=== PATIENT | female | born 2000 | race Caucasian/White ===

== ENCOUNTER 2021-01-27 09:03 | Outpatient (RCR) | payer OTHER, SELFPAY ==
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
[2021-01-27 10:00] VITALS: BP 131/89; PULSE 69
--- NOTE | 2021-01-27 10:15 | BH.SGPN.GN ---
Behaviors/Verbalizations/Mental Status: []Eye contact is fair to good. Motor activity is appropriate. Appearance is casual. Speech is Appropriate. Mood is anxious and depressed. Affect is congruent. Thoughts are linear and logical. No evidence of psychosis. Client Response/Progress/Benefit: []Pt new to IOP tx, was an active participant in group discussion and activity. Attentive during psychoeducation on factors that build resiliency AEB actively taking notes throughout, remaining mostly passive in participation. Worked with peers to define resilience and shared connecting with concept of resilience as one?s ability to ?bounce back? and continue moving forward when faced with adversity or setbacks. Noted connecting with personal resilience examples provided by fellow participants, nodding throughout discussion. Pt along with peers also identified what could impact personal resilience, which included: environment, learned behaviors and learned coping skills, beliefs, habits, and past experiences. Pt benefited by increasing awareness on the role of resilience in mental health and factors that can help build resiliency. Will continue in IOP to promote mood stability and healthy coping skill application, as well as prevent decompensation. Narrative Note: []
--- NOTE | 2021-01-27 10:28 | BH.MTP_ITS ---
[facility] Treatment Plan - Patient Information Program Physician:: Dr. Alana Alford Primary Therapist:: BK Flores - Psychiatric Diagnoses Psychiatric Diagnoses:: Major depressive disorder, recurrent, severe without psychosis, Generalized anxiety disorder Diagnosis Code(s):: F 33.2 - Estimated LOS Estimated LOS (in weeks):: 6 Problem/Goal #1 - Problem/Goal #1 Stated Goal:: Client will reduce depressive symptoms, feelings of hopelessness/worthlessness, apathy, and low energy due to Major Depressive Disorder through Intensive Outpatient Program. Description of Barriers: Negative and distorted thoughts, intrusive thoughts, low motivation, limited supports, apathy, and hx of poor tx outcomes could all be barriers to treatment. Functional Impact: Pt is a 20-year-old female with a history of depression and anxiety who was referred to IOP tx by her outpatient psychiatric provider due to worsening symptoms of depression and fleeting suicidal ideation. Per pt report, symptoms have been worsening for the past 2 months and especially became more severe in the past 3 weeks. Reports graduating from college 2 months ago and is struggling with anxiety about finding a job and determining her future career plans. Reports that lack of direction has led to increased depression, specifically hopelessness and worthlessness. Additionally reports that pressure to find a job had increased in the past few weeks as she and her long-term girlfriend have recently decided to move in together and cannot afford to do so until pt finds a more financially stable job in the [facility]. Reports currently living with her parents and sister who are supportive but that her father in not aware of her sexuality which is at times a stressor. At time of admission, pt endorses: low energy, increased fatigue and sleep, decreased motivation and concentration, hopelessness, worthlessness, isolation, and fleeting passive suicidal ideation. Denies any active suicidal ideation, plan, or intent at this time. Indicates some increased anxiety symptoms including racing thoughts, ruminating thoughts causing increased worry, and panic attacks occurring approximately once a week. Reports current symptoms have resulted in pt calling off at her current job, feeling disconnected from others, not completing daily self-care or responsibilities, limited finances, and lack of engagement in activities she used to enjoy. Given impact on social, occupational, and financial functioning pt is to begin IOP tx. Goal Relevant Strengths/Supports: intelligent, familiar with mental health tx environment, willing to learn and try new treatment skills. - Objectives Objective #1 Stated Objective: Identify at least 2-3 distorted thoughts that reinforce depressive symptoms and replace with rational thought patterns. Interventions: Therapist will help client identify distorted, negative beliefs about self and replace with more realistic, affirmative messages. Discharge Criteria: Client will have achieved this goal when can identify at least 2 distorted thought patterns and effectively replace those thoughts with rational messages. Target Date: 03/10/21 Review Date: 02/24/21 Objective #2 Stated Objective: Pt will decrease depressive symptoms AEB pt?s score on the DSM 5 cross-cutting measure and improve pt?s daily functioning. Interventions: Through groups and individual therapy, pt will be provided with education on healthy coping skills, cognitive distortions, mistaken beliefs, and identifying and combating negative self-talk. Therapist will assist pt with getting back into the activities she once enjoyed as well as increasing healthy coping strategies. Discharge Criteria: Pt will have met this goal when pt?s score on the DSM 5 cross cutting measure for depression has been decreased and per pt?s report daily functioning has improved Target Date: 03/10/21 Review Date: 02/24/21 Problem/Goal #2 - Problem/Goal #2 Stated Goal:: Stabilize anxiety levels and reduce racing thoughts which reinforce anxiety, while increasing ability to function on daily basis. Description of Barriers: Negative and distorted thoughts, intrusive thoughts, low motivation, limited supports, apathy, and hx of poor tx outcomes could all be barriers to treatment. Functional Impact: Pt is a 20-year-old female with a history of depression and anxiety who was referred to [facility] tx by her outpatient psychiatric provider due to worsening symptoms of depression and fleeting suicidal ideation. Per pt report, symptoms have been worsening for the past 2 months and especially became more severe in the past 3 weeks. Reports graduating from college 2 months ago and is struggling with anxiety about finding a job and determining her future career plans. Reports that lack of direction has led to increased depression, specifically hopelessness and worthlessness. Additionally reports that pressure to find a job had increased in the past few weeks as she and her long-term girlfriend have recently decided to move in together and cannot afford to do so until pt finds a more financially stable job in the [facility]. Reports currently living with her parents and sister who are supportive but that her father in not aware of her sexuality which is at times a stressor. At time of admission, pt endorses: low energy, increased fatigue and sleep, decreased motivation and concentration, hopelessness, worthlessness, isolation, and fleeting passive suicidal ideation. Denies any active suicidal ideation, plan, or intent at this time. Indicates some increased anxiety symptoms including racing thoughts, ruminating thoughts causing increased worry, and panic attacks occurring approximately once a week. Reports current symptoms have resulted in pt calling off at her current job, feeling disconnected from others, not completing daily self-care or responsibilities, limited finances, and lack of engagement in activities she used to enjoy. Given impact on social, occupational, and financial functioning pt is to begin IOP tx. Goal Relevant Strengths/Supports: intelligent, familiar with mental health tx environment, willing to learn and try new treatment skills. - Objectives Objective #1 Stated Objective: Client will learn and implement 2-3 calming skills to reduce overall anxiety and manage anxiety symptoms. Interventions: Therapist will teach client calming/relaxation skills and assign client homework which practices relaxation skills daily. Discharge Criteria: Client will have achieved this goal when can verbalize at least 2 calming skills and implement those skills successfully. Target Date: 03/10/21 Review Date: 02/24/21 Objective #2 Stated Objective: Pt will decrease anxious symptoms AEB pt?s score on the DSM 5 cross-cutting measure improve pt?s daily functioning. Interventions: Through groups and individual therapy, pt will be provided education about anxiety?s impact on body and common physiological reaction to anxiety. Therapist will teach pt appropriate breathing techniques and build he althy coping skills to manage daily anxieties. Aid client in identifying and challenging distorted thoughts that cause rumination and increased anxiety. Discharge Criteria: Pt will have met this goal when pt?s score on the DSM 5 cross cutting measure for anxiety has been decreased and per pt?s report daily functioning has improved. Target Date: 03/10/21 Review Date: 02/24/21
--- NOTE | 2021-01-27 11:15 | BH.SGPN.GN ---
Behaviors/Verbalizations/Mental Status: []Client alert and oriented, casual dress, hygiene tended to. Eye contact fair. Motor activity appropriate. Speech within normal limits. Affect constricted, mood anxious. Thoughts linear, logical, no signs of hallucinations or delusions. Client Response/Progress/Benefit: []Client responded well to session AEB contributing to discussion. Client participated in the discussion of how each resiliency component can help increase personal resiliency. Client engaged in activity, working cooperatively with group. Client?s goal to increase resilience is to avoid seeing crises as insurmountable problems. Client reported she will work on this by evaluating each crisis by asking herself will this matter in a year, month, week? Client reported working on this will help her address crisis vs trying to avoid. Pt seemed to benefit from identifying goal to improve her personal resilience. Will continue IOP to improve daily functioning, increase healthy coping and prevent decompensation. Narrative Note: []
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
--- NOTE | 2021-01-27 13:58 | BH.DR.ITP ---
Initial Treatment Plan Patient Information Visit Information: ADMISSION DATE: EXPECTED LOS: 4-6 weeks Problems/Symptoms Problem #1:: Depression Symptom:: Sadness, crying, hopelessness, worthlessness, apathy, hypersomnia, low energy, decreased concentration, passive suicidal ideation history Problem #2:: Anxiety Symptom:: Worry, rumination, panic attacks
--- NOTE | 2021-02-02 09:05 | BH.SGPN.GN ---
Behaviors/Verbalizations/Mental Status: [] Eye contact is good. Motor activity is appropriate. Appearance is casual. Speech is Appropriate. Mood is depressed. Affect is flat. Thoughts are linear and logical. No evidence of psychosis. Reviewed daily check in sheet and no reports of suicidal ideations or intent. Client Response/Progress/Benefit: [] Pt participated when prompted. Attentive. Emotion for today is numb. Unable to identify any mental health wins stating not really. Check-in was short and superficial. Did not identify any stressors or triggers to depressed mood this AM however limited feedback. Limited progress report. Benefited from support and encouragement. Will continue in IOP to maintain safety, stabilize mood, and prevent decompensation. Narrative Note: []
--- NOTE | 2021-02-02 10:10 | BH.SGPN.GN ---
Behaviors/Verbalizations/Mental Status: []Client alert and oriented, disheveled appearance. Eye contact good. Motor activity appropriate. Speech within normal limits. Affect constricted, mood dysthymic. Thoughts linear, logical, no signs of hallucinations or delusions Client Response/Progress/Benefit: []Pt was an attentive participant and provided input during the activity. Attentive during psychoeducation and taking notes. Reflected connecting with topic of personal pitfalls and how they can impede mental health treatment progress. Pt and peers also discussed reasons why overcoming pitfalls is so challenging. During experiential activity pt along with peers identified several pitfalls from the activity that are also associated with mental health which included: lack of awareness, poor communication, wanting to give up, and emotional reactivity. Pt expressed anxiety during the activity, especially when pt gained more responsibility in her role. Pt did well to stay present and keep trying. Benefited from group by increasing awareness of pitfalls which can impact mental health. Pt will continue in IOP tx to prevent decompensation, improve overall functioning, and reduce distorted thought patterns. Narrative Note: []
--- NOTE | 2021-02-02 11:10 | BH.SGPN.GN ---
Behaviors/Verbalizations/Mental Status: []Client alert and oriented, casually dressed and groomed. Eye contact good. Motor activity appropriate. Speech within normal limits. Affect congruent, mood anxious and depressed. Thoughts linear, logical, no signs of hallucinations or delusions. Client Response/Progress/Benefit: []Client receptive of session, engaged throughout AEB client actively participating in challenge activity, as well as listening and contributing to discussion. Attentive throughout processing portions of session and reflected that lack of communication or not knowing how to communicate her needs has served as a barrier in managing her mental health symptoms. Client completed worksheet identifying personal pitfalls impacting mental health progress. Client identified the following pitfalls: negative thoughts, lack of communication, avoidance, and wanting to give up when things get too hard. Group discussed different coping skills to help manage or prevent from falling into pitfalls. Client expressed plans to work on challenging herself to more consistently step back and take small breaks as needed. Appeared to benefit from identifying personal pitfalls and strategies to overcome these pitfalls. Will continue IOP tx to prevent decompensation, improve consistent application of healthy coping skills, and further promote mood stability. Narrative Note: []
--- NOTE | 2021-02-03 09:05 | BH.SGPN.GN ---
Behaviors/Verbalizations/Mental Status: [] Pt eye contact good, casually dressed, motor activity appropriate, speech normal rate and tone, mood anxious, constricted affect, thoughts linear and intact, no evidence of delusions or hallucinations. Reviewed client?s symptom tracker, no signs of suicidal ideation, plan, or intent as of today. Client Response/Progress/Benefit: []Pt responded well to session AEB by listening to others and sharing thoughts and feelings. Pt reported mental health positive as not having any suicidal thoughts yesterday. Pt reported yesterday she noticed herself starting to feel sad so she used opposite action to leave her dark bedroom and go outside for awhile. Pt stated changing her environment definitely helped her mood. Pt stated currently stressed that she needs to find a full-time job so she can move to [place] with her girlfriend. Pt seemed to benefit from reflecting on progress and support from peers. Pt to continue IOP to continue use of healthy coping, challenge negative thoughts and prevent decompensation. Narrative Note: []
--- NOTE | 2021-02-03 10:16 | BH.SGPN.GN ---
Behaviors/Verbalizations/Mental Status: []Client alert and oriented, casually dressed and groomed. Eye contact good. Motor activity appropriate. Speech within normal limits. Affect congruent, mood anxious and depressed. Thoughts linear, logical, no signs of hallucinations or delusions. Client Response/Progress/Benefit: []Pt was an active participant AEB taking notes and listening throughout group discussion, as well as completed anger worksheet. Group worked together to define anger and discussed the ways anger can impact one internally and externally. Pt nodding in connection that anger can lead to damaged relationship with oneself via negative self-talk and guilt if not expressed in healthy ways. Completed the iceberg exercise and identified emotions that tend to ?live under the surface? of pt?s own anger include:, feeling over-stimulated, disappointed, anxious, loneliness, and feeling vulnerable. Pt also gained awareness of their typical responses to anger which included: being rude, smoking more, avoiding and isolating, self-harming, and getting quiet. Benefited from group by increasing understanding of the impact of anger on mental health. Recommended continued tx to continue to improve emotion regulation skills, prevent decompensation, and continue to promote healthy communication with her supports. Narrative Note: []
--- NOTE | 2021-02-03 11:20 | BH.SGPN.GN ---
Behaviors/Verbalizations/Mental Status: []Client alert and oriented, casually dressed and groomed. Eye contact good. Motor activity appropriate. Speech within normal limits. Affect constricted, mood dysthymic and anxious. Thoughts linear, logical, no signs of hallucinations or delusions. Client Response/Progress/Benefit: []Pt was engaged throughout AEB participating in discussion and taking notes. Pt was shaking during the activity, but did well to manage her anxiety in the moment. Contributed as group brainstormed healthy coping skills for better managing anger which included: deep breathing, counting, exercise, taking a walk, and listening to music. Pt also gained awareness of costs of unmanaged anger. Pt appeared to benefit from identifying different techniques to manage anger as well as gaining awareness of the costs of anger. Pt selected deep breathing to better manage anger. Will continue IOP tx to reduce suicidal ideations, improve functioning, and combat cognitive distortions Narrative Note: []
--- NOTE | 2021-02-16 11:22 | BH.MDN ---
Multi-Disciplinary Note - Note 30-min Individual Time Started:: 09:00 Date: 02/02/21 Time Stopped:: :30
== END 2021-02-09 23:59 ==
LOC: BHIOP 09:03
PROVIDERS: PCP Family Medicine; Referring Provider Psychiatry & Neurology Psychiatry; Visit Provider Psychiatry & Neurology Psychiatry
DX: F33.2 Major depressive disorder, recurrent severe without psychotic features (principal); F41.1 Generalized anxiety disorder; R45.851 Suicidal ideations; F12.90 Cannabis use, unspecified, uncomplicated; Z79.899 Other long term (current) drug therapy; Z91.5 Personal history of self-harm
CPT/HCPCS: S9480; 90832; 90853

== ENCOUNTER 2021-02-10 08:31 | Outpatient (RCR) | payer OTHER, SELFPAY ==
[2021-02-10 00:44] VITALS: BP 131/89; PULSE 69
--- NOTE | 2021-02-16 09:10 | BH.SGPN.GN ---
Behaviors/Verbalizations/Mental Status: [] Eye contact is good. Motor activity is appropriate. Appearance is casual. Speech is Appropriate. Mood is anxious. Affect is congruent. Thoughts are linear and logical. No evidence of psychosis. Reviewed daily check in sheet and no reports of suicidal ideations or intent. Client Response/Progress/Benefit: [] Pt participated at times. Attentive. Provided appropriate feedback. Emotion for today is anxious. Mental health wins was increased confidence in mood and stress management which has led to increased work hours. Believes she is managing stress more effectively. Anxious about her parents who were both diagnosed with COVID. She is stepping outside the box and trying to utilize skills such as meditation as she recently downloaded an mariella on her phone for this. Group provided other apps which they have found helpful. Progress noted per pt report. Benefited from group discussion, feedback, and support. Will continue in IOP to maintain safety, increase healthy coping skills, and prevent decompensation. Narrative Note: []
--- NOTE | 2021-02-16 10:06 | BH.SGPN.GN ---
Behaviors/Verbalizations/Mental Status: [] Client alert and oriented, casually dressed and groomed. Eye contact good. Motor activity appropriate. Speech within normal limits. Affect congruent, mood anxious and depressed. Thoughts linear, logical, no signs of hallucinations or delusions. Client Response/Progress/Benefit: [] Pt was well engaged in group AEB taking notes and listening attentively throughout. Attentive during psychoeducation and discussed the importance of goal-setting with the group. Pt indicated ?You need motivation to begin to make progress or opposite action if we don?t have it?. Group identified potential benefits of having goals include: they motivate, increase self-esteem, and are needed to have progress, give a sense of accomplishment, and provide a sense of purpose. Group also worked together to identify barriers to goal-setting which included; negative self-talk, lack of motivation, unrealistic expectations, and procrastination. Pt identified personal barrier as outside distractions and low self-esteem?. Shared that she has struggled to motivate herself to complete goals out of fear of failure in the past. Benefited from increased awareness of benefits and barriers to goal-setting. Pt will continue in IOP to prevent decompensation, reduce depressive sx, and create small goals to improve daily functioning. Narrative Note: []
--- NOTE | 2021-02-17 08:57 | BH.SGPN.GN ---
Behaviors/Verbalizations/Mental Status: []Client alert and oriented, casually dressed and groomed. Eye contact good. Motor activity appropriate. Speech within normal limits, quiet and limited input provided. Affect constricted, mood dysthymic and anxious. Thoughts linear, logical, no signs of hallucinations or delusions. Reviewed client?s symptom tracker, no risk for suicidal ideation, plan, or intent as of 02/17/21 Client Response/Progress/Benefit: []Client receptive of session and attentive throughout. Nodding as fellow participants shared, however declined to process her own progress with the group. Client symptom tracker indicated improvements overall, specifically in areas of depression and anxiety. Appeared to benefit from the shared environment AEB nodding in connection when participants discussed. Client does at times report social anxiety and would benefit from continued treatment to promote increased engagement, internalization of skills, and furth stabilize mental health sx. Narrative Note: []
--- NOTE | 2021-02-17 10:10 | BH.SGPN.GN ---
Behaviors/Verbalizations/Mental Status: [] Eye contact is good. Motor activity is appropriate. Appearance is casual. Speech is Appropriate. Mood is depressed. Affect is flat. Thoughts are linear and logical. No evidence of psychosis. Client Response/Progress/Benefit: [] Pt was an active participant in group discussions. Attentive during psychoeducation. Pt along with peers added their perspective on the definition of stigma as it relates to mental health. Pt participated in interactive group discussion on the topic. Pt along with peer identified how stigma can impact one which included; keeps one more depressed, keeps one from recognizing or addressing mental health, keeps us with showing and being honest about our emotions, keeps one from opportunities, can keep one from social and interacting with friends/family, etc, can impact relationships, and can keep one from seeking help for fear of being labeled.Benefited from increased awareness of mental health stigma and how it could impact patient. Will continue in IOP to maintain safety, prevent decompensation, and to increase healthy coping skills. Narrative Note: []
--- NOTE | 2021-02-17 11:15 | BH.SGPN.GN ---
Behaviors/Verbalizations/Mental Status: []Client alert and oriented, casually dressed, hygiene appeared to be tended to. Eye contact fair. Motor activity appropriate. Speech within normal limits. Affect constricted, mood anxious. Thoughts linear, logical, no signs of hallucinations or delusions. Client Response/Progress/Benefit: []Client engaged participant AEB pt provided some input during small group discussion, taking notes and listening attentively to others. Group brainstormed strategies to combat social and perceived stigma which included: educating others, no longer using negative language about mental illness, being open about mental health, and not reinforcing stigma with behaviors or labels. Client stated she will attempt to decrease mental health stigma by validating own emotions and experiences instead of calling self lazy and minimizing symptoms. Appeared to benefit from increasing awareness of strategies to combat stigma. Will continue IOP tx to continue use of healthy coping, decrease anxiety and prevent decompensation. Narrative Note: []
--- NOTE | 2021-02-19 09:10 | BH.SGPN.GN ---
Behaviors/Verbalizations/Mental Status: [] Eye contact is good. Motor activity is appropriate. Appearance is casual. Speech is Appropriate. Mood is anxious. Affect is congruent. Thoughts are linear and logical. No evidence of psychosis. Reviewed daily check in sheet and no reports of suicidal ideations or intent. Client Response/Progress/Benefit: [] Pt was an active participant in group discussion on empathy vs sympathy. Attentive. Emotion for today is blah. Mental health wins included completing self-care yesterday and she elaborated further on this. She reports that she might gone have to far with her self-care however would not elaborate. She asked the group how we know if self-care becomes excessive. Group provided feedback regarding if self-care is excessive and negatively impacting one's functioning that this could be a warning sign. Group encouraged pt to speak with counselor and support if she did not feel comfortable discussion in group. Progress noted. Benefited from group support, encouragment, and feedback. Will continue in IOP to maintain safety, stabilize mood, and increase healthy coping. Narrative Note: []
--- NOTE | 2021-02-19 10:10 | BH.SGPN.GN ---
Behaviors/Verbalizations/Mental Status: []Client alert and oriented, casually dressed and groomed. Eye contact fair. Motor activity appropriate. Speech within normal limits. Affect constricted, mood anxious. Thoughts linear, logical, no signs of hallucinations or delusions. Client Response/Progress/Benefit: []Client passive participant as shown by active listening and limited contributions. Client listened to the discussion of self-care and the consequences of not practicing self-care. Client helped the group discuss benefits of self-care. Worked with group to identify consequences of poor self-care which included: increased depression, increased anxiety, irritable, and difficulty functioning. Client participated in the discussion on debunking of myths about self-care. Client seemed to connect with group that she will often tell herself she should be doing something different instead of self-care. Client seemed to benefit from increased awareness of the importance of self-care and challenging common myths that prevent practicing self-care. Will continue IOP tx to continue use of healthy coping, challenge negative thoughts and prevent decompensation.
--- NOTE | 2021-02-19 11:18 | BH.SGPN.GN ---
Behaviors/Verbalizations/Mental Status: []Client alert and oriented, casually dressed and groomed. Eye contact good. Motor activity appropriate. Speech within normal limits. Affect constricted, mood depressed and anxious. Thoughts linear, logical, no signs of hallucinations or delusions. Client Response/Progress/Benefit: []Client engaged participant AEB client taking notes and providing some input during discussion, as well a listening attentively to peers. Participated throughout group discussion on the various areas of self-care, benefits, and types of self-care activities for each area. Client completed worksheet which identified current self-care practices and what self-care activities client wants to start using. Client shared doing best in the area of spiritual self-care and would like to continue to improve upon this area as well as begin improving upon emotional self-care as well. Identified plans to work on practicing regular meditation, as well as tracking her own personal accomplishments and areas of progress in order to do begin improving in these areas. Appeared to benefit from completing the self-care evaluation and gaining insights into current self-care practices, as well as identifying areas in which he would like to improve upon. Will continue IOP tx to prevent decompensation, improve coping skill application, and continue to address anxiety sx. Narrative Note: []
--- NOTE | 2021-02-23 09:00 | BH.SGPN.GN ---
Behaviors/Verbalizations/Mental Status: []Client alert and oriented, casually dressed and groomed. Eye contact fair to good. Motor activity appropriate. Speech quiet but within normal limits. Affect congruent, mood anxious, dysthymic. Thoughts linear, logical, no signs of hallucinations or delusions. Reviewed client?s symptom tracker, risk for suicidal ideation reported as a 1/5 which is consistent with baseline, denies plan, or intent as of 02/23/21 Client Response/Progress/Benefit: []Client responded well to session, mostly passive but remained attentive and willing to process with group. Client reports feeling ?slightly anxious and on-edge? today. She identified ongoing difficulties in finding a job in the [employer] to be her primary stress. Shared that this has continued to delay her plans to move and at times feels as though she is ?stuck in a holding pattern?. With support from therapist, client did well to identify that she has made some progress as last week she had not yet completed her resume or begun applying to potential jobs. Noted struggling with patience which has increased distorted thoughts at times. Despite struggling, client identified several skills she has been using to try and focus on self-care and improve ability to maintain patience as she waits to hear back from potential employers. Identified meditation, reading, and reaching out to supports as primary skills used. Appeared to benefit from group support and encouragement, as well as challenging herself to identify small areas of progress despite feeling stagnant. Will continue IOP tx to improve thought challenging, continue to promote behavior activation and small goal setting as she seeks employment, as well as prevent decompensation. Narrative Note: []
--- NOTE | 2021-02-23 10:08 | BH.SGPN.GN ---
Behaviors/Verbalizations/Mental Status: []Client alert and oriented, casually dressed and groomed. Eye contact fair. Motor activity appropriate. Speech within normal limits. Affect constricted, mood anxious and dysthymic. Thoughts linear, logical, no signs of hallucinations or delusions. Client Response/Progress/Benefit: []Pt was an active participant in group discussion AEB taking notes and providing input throughout. Attentive during psychoeducation reviewing internal and external obstacles and provided examples throughout. Participated in the reflection activity in which clients madeline pictures depicting their current and desired reality and shared with the group. Pt described her current reality as ?it feels like I?m in a raft in the middle of the ocean?I just feel stuck.? Pt described her desired reality as ?being moved out, having the job I want, and not feeling as stuck.? Pt reflected on strengths she has that will help pt get to desired reality such as recognizing progress she has made and having more awareness of her feelings. Benefited from group by increasing awareness of current reality and strengths. Will continue IOP tx to improve overall functioning, reduce avoidance, and increase the use of healthy coping skills. Narrative Note: []
--- NOTE | 2021-02-23 11:06 | BH.SGPN.GN ---
Behaviors/Verbalizations/Mental Status: []Client alert and oriented, casually dressed and groomed. Eye contact good. Motor activity appropriate. Speech within normal limits. Affect constricted, mood anxious and dysthymic. Thoughts linear, logical, no signs of hallucinations or delusions. Client Response/Progress/Benefit: []Client engaged during activity and provided ideas on how to cope with internal barriers that keep clients stuck from moving towards goals. Client able to identify barriers to desired reality. Identified barriers to current reality to include: avoidance, lack of motivation, and negative self-talk. Client wants to work on reducing avoidance by practicing opposite action, specially not calling off work when she is anxious. Client plans to tell her goal to her mother to help client be accountable. Benefited from group by identifying obstacles and solutions to desired reality. Client will continue IOP tx to reduce anxiety symptoms, improve overall functioning, and decrease negative thinking. Narrative Note: []
--- NOTE | 2021-02-24 10:15 | BH.MTP_ITS ---
Treatment Plan Review Date of Admission:: 01/27/21 Date of Treatment Plan Review:: 02/24/21 Admitting Diagnoses:: Major depressive disorder, recurrent, severe without psychosis, Generalized anxiety disorder Current Diagnoses:: Major depressive disorder, recurrent, severe without psychosis, Generalized anxiety disorder Patient's Response to Treatment:: Patient's Response to Treatment:: Client has been responding well to treatment and reports seeing overall improvements in her mood and functioning since beginning IOP tx, this is also reflected in overall symptoms reduction as noted in DSM-5 symptom tracker scores. Client initially struggled with consistent attendance and missed several sessions due to illness in the first two weeks of treatment; however, has since been consistent in attendance. When in groups and individual sessions, client remains actively engaged and often provide input to discussion. Client is engaged in individual sessions and self-reports practicing healthy coping skills. Client is medication compliant. Status of Current Problems and Symptoms: Client's problems are ongoing, though she has noted a reduction an anxiety symptoms. Some reduction in depressive sx and reports increased motivation, though continues to struggle with stress of job searching. Client shared she has been struggling with feeling stagnant but is making progress in perspective challenging and small goal completion. Client continues to report a reduction in passive thoughts of suicide and denies any active plan or intent, as well as a 50% reduction in self-harming urges which is progress. Problem #1 Problem Name:: Depression, hopelessness, worthlessness, passive SI Status of Goals:: Objective 1- not complete. Client has made some progress in identifying unhealthy and distorted thoughts which reinforce depression; however, continues to struggle with active and consistent thought challenging. Indicates some improvement in overall ability to challenge negative and distorted thoughts, though struggles when feeling she is not making progress or is not accomplishing goals as quickly as she would like. Objective 2- complete, with additional progress recommended. Client continues to work on identifying and implementing healthy coping skills to reduce depression, improve motivation, and engage in activities she has previously enjoyed. This is seen in client overall 43% reduction of depressive sx as indicated in DSM-5 scores. Team Recommendations:: Continue with goals identified, specific attention to combating negative self-talk and improving self-compassion Problem #2 Problem Name:: Anxiety, rumination, panic Status of Goals:: Objective 1- partially complete. Client reports a slight reduction in anxiety sx per DSM-5 scores reducing by 12.5 %. Client is able to identify several calming skills for managing sx of anxiety. Reports she has been using healthy skills of meditation, reaching out to supports, and positive self- talk. Pt does however continue to report ruminating thoughts and worry but is making progress in these areas as well. Team Recommendations:: Continue treatment plans, work on reducing avoidance behaviors when feeling anxious.
--- NOTE | 2021-02-25 10:10 | BH.SGPN.GN ---
Behaviors/Verbalizations/Mental Status: []Client alert and oriented, casually dressed and groomed. Eye contact good. Motor activity WNL. Speech within normal limits. Affect congruent, mood anxious and dysthymic. Thoughts linear, logical, no signs of hallucinations or delusions. Client Response/Progress/Benefit: []Client responded well to session, attentive and engaged throughout discussion and activity. Agreed with session quote and shared ?if you let fear keep you from things then you will only continue to stay stuck where you are?. The group discussed how mindset, one?s reaction to setbacks, and expectations for success determines progress. Client shared fear of letting self or others down has reinforced her fear of failure in the past and led to client not taking changes or giving up. Client appeared to benefit from gaining awareness of the impact fear of failure can have on one?s mental health and wellbeing, noting connecting with how fear of failure may reinforce depression. Progress noted as client continues gain insight and coping skills which have improved depressive symptoms, however struggles with consistency. Will continue IOP to reduce symptoms, combat distortions reinforcing depression and anxiety, and improve daily functioning. Narrative Note: []
--- NOTE | 2021-02-25 11:12 | BH.SGPN.GN ---
Behaviors/Verbalizations/Mental Status: []Client alert and oriented, casually dressed and groomed. Eye contact good. Motor activity appropriate. Speech within normal limits. Affect congruent, mood dysthymic. Thoughts linear, logical, no signs of hallucinations or delusions. Client Response/Progress/Benefit: []Client responded well to session, engaged in the experiential activity and contributing at times throughout discussion. Client completed the fear of failure worksheet and reported that fear of failure has kept client from ?speaking up in social settings? 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 Client able to identify thoughts and behaviors that reinforce personal fear of failure which included: self-doubt, low self-esteem, being comfortable with remaining stagnant, fear of rejection, and unrealistic expectations of self. Client attentive during discussion of the different strategies to help overcome fear of failure. Identified wanting to work on adjusting her definition or failure to improve her ability to see progress within potential failure settings to overcome fear of failure. Client has made progress with improving use of opposite action and positive self-talk to reduce depression, though continues to struggle in these areas. Client will continue IOP tx to promote mood stability, reduce negative self-talk and unrealistic expectations of self, and improve self-care. Narrative Note: []
--- NOTE | 2021-03-03 09:05 | BH.SGPN.GN ---
Behaviors/Verbalizations/Mental Status: []Client alert and oriented, casually dressed and groomed. Eye contact poor. Motor activity appropriate. Speech within normal limits. Affect flat, mood depressed. Thoughts linear, logical, no signs of hallucinations or delusions. Reviewed client?s symptom tracker, no risk for suicidal ideation, plan, or intent as of 03/03/21 Client Response/Progress/Benefit: []Client was quiet during group session and declined to shared during check-in. Client completed the daily symptom tracker and reported a 3/5 (5 being severe) for depression today. Client also marked 2/5 for irritability and agitation. Because client did not share, therapist was unable to gather client's mental health wins and stressors. Per client's daily symptom tracker, her mood has generally been the same and she reports her functioning has generally been better. Client also self-reports she is taking her medication as prescribed. Appeared to benefit from coming to group today instead of isolating. Client will meet with her IOP therapist later today. Will continue IOP tx to prevent decompensation and challenge cognitive distortions. Narrative Note: []
--- NOTE | 2021-03-03 10:15 | BH.SGPN.GN ---
Behaviors/Verbalizations/Mental Status: [] Eye contact is good. Motor activity is appropriate. Appearance is casual. Speech is Appropriate. Mood is depressed. Affect is flat. Thoughts are linear and logical. No evidence of psychosis. Client Response/Progress/Benefit: [] Pt was an active participant in group discussion and activity. Attentive during psychoeducation on fixed mindset and fixed thinking. Participated with group in experiential activity which initially seemed impossible however worked with peers to come up alternative solutions while practicing the skills at looking at obstacle with growth mindset. Completed worksheet in which pt identified common fixed thoughts she has which included; I'm not good enough, I can't handle this, I'm stuck, I'm never going to get anywhere in life. Benefited from increased awareness of fixed thinking. Will continue in IOP to prevent decompensation, increase healthy coping, and stabilize mood. Narrative Note: []
--- NOTE | 2021-03-03 11:10 | BH.SGPN.GN ---
Behaviors/Verbalizations/Mental Status: []Client alert and oriented, casually dressed and groomed. Eye contact fair to good. Motor activity appropriate. Speech within normal limits. Affect constricted. mood depressed. Thoughts linear, logical, no signs of hallucinations or delusions. Client Response/Progress/Benefit: []Client engaged during activity and discussion AEB remaining attentive and taking notes throughout, appearing more passive than in prior groups. Reported struggling with negative self-talk today which may have impeded ability to remain resent throughout. Client did well to engage as group worked on identifying characteristics and benefits of adopting a growth mindset. Attentive as fellow participants worked on reframing the example fixed thoughts into growth mindset thoughts. Client worked in small group to apply skills learned to reframe own personal fixed thoughts. Appeared to benefit from suggestions provided by peers as client indicated struggling to reframe thoughts identified. Reframed personal fixed thought of ?I?m not good enough? with growth mindset thought of ?I was good enough to graduate college. I have made it through hard things before and can continue to prove I am good enough?. Noted that this would aid in reducing stress and anxiety as she will feel less pressured to continue to live up to unfair expectations or doubt herself. Additionally, identified that focusing on her reframed thought may help her to feel more confident which client continues to struggle significantly with. Benefitted from discussing benefits of growth mindset and brainstorming strategies for prompting growth-mindset. Will continue IOP tx to continue to promote active thought challenging, improve self-confidence, and continue to reduce depressive sx. Narrative Note: []
--- NOTE | 2021-03-03 12:24 | PCM.BH.PN ---
Progress Note Progress Note: History of Present Illness/Interim History: [] The patient is a 20-year-old single female who is seen in follow-up at the [facility] behavioral health IOP program. I last saw the patient 1 month ago. The patient feels that she is doing well in the IOP program and feels that her's mental health issues have improved and become more stable. She feels she is learning valuable skills to help her manage her issues. Her mood is much better with only occasional down days now. She denies any hopelessness and denies worthlessness. She continues to have some fatigue and low motivation and difficulty getting things done. She has not been able to start exercising yet. She still has rare passive, fleeting suicidal ideation but much less than before. She denies any passive thoughts of , active suicidal ideation, homicidal ideation, hallucinations or delusions. She denies any cutting or self-harm. She has tried to decrease her use of caffeine. She has not had any panic attacks in the past 3 weeks or so. She saw her nurse practitioner yesterday and was started on the Wellbutrin XL that she had refused from me 1 month ago. Current Psychiatric Medications: [] Zoloft 150 mg p.o. daily (for 1 year); Wellbutrin XL 150 mg p.o. every morning (started this today) Mental Status Examination: [] Patient is a 20-year-old female who is seen wearing a mask due to the pandemic and is casually dressed and groomed with good hygiene. She has no psychomotor agitation or retardation. Eye contact is good and speech is normal rate and rhythm and fluent with no pressure. Mood is mildly depressed. Affect is mildly constricted. Thought process is goal-directed and organized. Thought content: There is evidence of rare fleeting, passive suicidal ideation. There is no evidence of thoughts of self-harm, active suicidal ideation, homicidal ideation, hallucinations or delusions. Reality testing is intact. Judgment is intact. Insight is limited but improving. Impulsivity is moderate. Diagnoses: [] 1. Major depressive disorder, recurrent, severe without psychosis 2. Generalized anxiety disorder 3. Mild cluster B traits 4. Career, work and primary support issues Plan: [] The patient will continue the IOP program at [facility] as the structure, support, education and group therapy will hopefully prevent worsening of the patient's symptoms. She felt safe during the interview and if it anytime she does not feel safe she will let us know or go to the emergency room. The risks, options, possible side effects and complications of the medications were discussed with the patient again and she understands and accepts these. The patient will continue on the Wellbutrin XL that she started today. She agrees to continue to try exercising and to become aware of when she starts thinking negatively. I will see the patient in follow-up in 2 weeks or as needed. She will continue to follow-up with her outpatient providers as scheduled.
--- NOTE | 2021-03-05 11:44 | BH.COMM ---
Communication Note - Communication with Client Communication Note: Pt scheduled for IOP group on this date however did not show or call to cancel. Therapist contacted pt to follow-up and pt indicated forgetting she was singed-up for group today and noted she is not in any distress. Discussed plans for self-care and to work this weekend. Future oriented and expressed plans to return to [facility] next week.
--- NOTE | 2021-03-09 09:05 | BH.SGPN.GN ---
This psychotherapy group was provided via telehealth using two-way, real-time interactive telecommunication technology between the clients and the provider. The interactive telecommunication technology included audio and video. The client was offered telemedicine as an option for care delivery during the COVID-19 pandemic and consented to this option. Client location: [place] Provider located at [facility] Behaviors/Verbalizations/Mental Status: []Client alert and oriented, responding to discussion and prompting. Unable to assess client's mental status because client's computer did not have a video camera. Client reports feeling hopeful and denies any symptoms of depression today. Client Response/Progress/Benefit: []Client responded well to session, reports feeling hopeful this morning. Client stated she has a job interview this afternoon and client is both nervous and excited. Client stated the job is at a company client is very interested in and the interveiw is over the phone which decreases some anxiety. Client shared she has been using thought challenging more often and this has helped her mood. Client reported she did not get much sleep last night due to thinking about the interview today and client was encouraged to practice self-care today before her interview. Discussed the benefits of taking a break and decompressing such as increased concentration and reduced stress. Appeared to benefit from connecting with peers and discussing the benefits of self-care. Progress noted in client's improved mood, however, client continues to struggle with maintaining mood stability. Will continue IOP tx to increase self-care, reduce negative thought patterns and further improve functioning. Narrative Note: []
--- NOTE | 2021-03-09 10:15 | BH.SGPN.GN ---
This psychotherapy group was provided via telehealth using two-way, real-time interactive telecommunication technology between the clients and the provider. The interactive telecommunication technology included audio and video. The client was offered telemedicine as an option for care delivery during the COVID-19 pandemic and consented to this option. Client location: [place] Provider located at [facility] Behaviors/Verbalizations/Mental Status: [] Client appearing alert and oriented however MSE unable to determine as client attended via telehealth and was unable to access a camera, Speech within normal limits. Affect appearing congruent based on input provided, mood anxious, euthymic. Thoughts linear, logical, no signs of hallucinations or delusions. Client Response/Progress/Benefit: []Client receptive to session, participating throughout. Provided input as the group brainstormed the positive and negative aspects of stress on physical and mental health. Group did well to identify the benefits of stress as well as the impact of distress on performance and mental health. Client identified top stressors such as change, avoidant behaviors and depressive cycle. Client reports when the stress overflows client reaction to this is decrease in functioning. Client stated she will want to stay in bed all day and calls off work. Client seemed to benefit from increased awareness of current stressors and impact stress has on mental health. Recommended to continue IOP tx to continue use of healthy coping, challenge distorted thoughts and prevent decompensation. Narrative Note: []
--- NOTE | 2021-03-09 11:15 | BH.SGPN.GN ---
Behaviors/Verbalizations/Mental Status: [] Client appearing alert and oriented however MSE unable to determine as client attended via telehealth and was unable to access a camera, Speech within normal limits. Affect appearing congruent based on input provided, mood anxious, euthymic. Thoughts linear, logical, no signs of hallucinations or delusions. Client Response/Progress/Benefit: []Client did well to remain engaged throughout AEB providing input and taking notes. Client unable to complete the activity due to being telehealth but provided encouragement and shared observations with the group. Client remained attentive and contributed during discussion about the 4 A's of managing stress, expressing connection with the various benefits of each. Shared wanting to practice the skill of acceptance as she struggles to cope with changes when they occur in her life. Client seemed to benefit from increased awareness of the impact of stress on mental health and increasing repertoire of stress management strategies. Will continue IOP tx to prevent decompensation, improve anxiety management and reduce avoidance, as well as improve self-talk. Narrative Note: []
--- NOTE | 2021-03-11 10:12 | BH.SGPN.GN ---
Behaviors/Verbalizations/Mental Status: []Eye contact is good. Motor activity is appropriate. Appearance is casual. Speech is Appropriate. Mood is euthymic. Affect is congruent. Thoughts are linear and logical. No evidence of psychosis. Client Response/Progress/Benefit: []Pt was a quiet participant in group discussions, appeared to listen attentively to others. Attentive during psychoeducation on benefits and disadvantages of anxiety and review of different types of Anxiety Disorders (Social Anxiety, CESARIO, OCD, PTSD, and Separation Anxiety). Completed worksheet on identifying own physical symptoms or signs of anxiety which pt reported numerous however identified most frequent as: sweaty hands, hyperventilating, and feeling like she might pass out. Benefited from increased awareness of physiological signs of anxiety as well as differences between 'normal' anxiety and anxiety disorder. Will continue in IOP to maintain gains, continue use of healthy coping skills and prevent decompensation. Narrative Note: []
--- NOTE | 2021-03-11 11:10 | BH.SGPN.GN ---
Behaviors/Verbalizations/Mental Status: []Client alert and oriented, casually dressed and groomed. Eye contact good. Motor activity appropriate. Speech within normal limits. Affect congruent, mood euthymic. Thoughts linear, logical, no signs of hallucinations or delusions. Client Response/Progress/Benefit: []Client was an active participant in group discussion and providing good insight to peers. Reviewed safety behaviors she engages in that reinforce anxiety. Some of client?s safety behaviors include avoidance such as calling off work and making excuses to get out of plans. Attentive during psychoeducation on mindfulness coping skills and their impact on mental health wellness. The group worked together to brainstorm anxiety reduction strategies. Client selected meditation as the mindfulness skill client will practice for the next three days. Client seemed to benefit from increased repertoire of anxiety reduction skills. Client will continue IOP tx to promote gains, further combat distortions, and further improve functioning. Narrative Note: []
--- NOTE | 2021-03-11 12:00 | BH.MDN ---
Multi-Disciplinary Note - Note 30-min Individual Time Started:: :20 Date: 03/11/21 Purpose of session/treatment goals addressed:: Reviewed current symptoms and progress in IOP. Addressed progress on treatment plan goals and reviewed thought challenge strategies. Discussion on aftercare plans. Eye Contact:: Good Motor Activity:: Appropriate Appearance:: Casual Speech:: Appropriate Mood:: Euthymic Affect:: Congruent Thoughts:: Linear, Logical, No evidence of hallucinations/delusions noted Staff Interventions:: motivational interviewing - to continue to elicit change behaviors and discuss strategies for maintaining gains and preventing setbacks, CBT techniques - reviewed the 20 questions TO HELP YOU CHALLENGE NEGATIVE THOUGHTS worksheet, discharge planning, strengths perspective Client Response:: Pt reports feeling much more ?optimistic and hopeful about the future? today compared with last week. Reports she has been spending a lot more time engaging in self-care and challenging her negative thoughts when they pop up. Shared that she had an interview earlier this weel for a job within her field and feels the interview went well. Indicated that this has helped her to focus more on the positives and areas she is making progress rather than feelings of being ?stuck?. Notes some anxious thoughts about the interview but feels she is doing well to focus on the evidence rather than her ?what if? thoughts. Discussed plans to move to [place] with her partner if she gets the job and is both excited and nervous about this. Explained that her parents tend to focus on their anxieties about her moving rather than the positives which stresses client out. Did well to work with therapist to identify what steps she is taking address each of her parent?s concerns, such as finances and social supports. Pt was receptive of several counseling referrals in the [place] area and reports plans to follow-up after moving. Remainder of session spent reviewing progress in IOP with plan to discharge next . Pt identified what skills she finds most helpful and what will be important for her to continue to work on post discharge. Pt reports improved comfort in spending time alone and has taken several steps to begin incorporating independent self-care activities into her daily routine. Identified meditation, journaling, spending time with her dogs, and 5-7-3 breathing as skills she finds most effective. Reports that her supports have seen positive improvements in her mood management and increased confidence and positivity. Discussed plans to continue outpatient counseling and psychiatry services through [id number] until moving. Risks/Concerns:: Denies any suicidal ideations, plan, or intent. Progress Toward Goals/Plan:: Progress noted since starting IOP. Currently denies any SI, plan, or intent which is progress from admission. Reports being more stable and able to manage being alone without escalating to point of crisis. Shared improved self-care, use of opposite action, and communication with supports. Has been actively seeking employment which client was previously avoiding. Plan is to discharge next week. She is going to continue outpatient counseling and psychiatry services through [id number] until moving. Time Stopped:: 10:52
== END 2021-03-11 23:59 ==
LOC: BHIOP 08:31
PROVIDERS: PCP Family Medicine; Referring Provider Psychiatry & Neurology Psychiatry; Visit Provider Psychiatry & Neurology Psychiatry
DX: F33.2 Major depressive disorder, recurrent severe without psychotic features (principal); F41.1 Generalized anxiety disorder; Z79.899 Other long term (current) drug therapy
CPT/HCPCS: S9480; 90832; 90834; 90853

== ENCOUNTER 2021-03-16 09:00 | Outpatient (RCR) | payer OTHER, SELFPAY ==
[2021-03-12 00:33] VITALS: BP 131/89; PULSE 69
--- NOTE | 2021-03-16 09:05 | BH.SGPN.GN ---
Behaviors/Verbalizations/Mental Status: []Client alert and oriented, casually dressed and groomed. Eye contact fair. Motor activity appropriate. Speech within normal limits. Affect flat-tearful, mood depressed. Thoughts linear, logical, no signs of hallucinations or delusions. Reviewed client?s symptom tracker, reports 3/5 for thoughts of suicide and 0/5 for risk of suicide. Client Response/Progress/Benefit: []client responded well to session, receptive to encouragement and support from peers. Client reports feeling depressed today as she found out she did not get the job she wanted. Client became tearful and shared she did not want to come today, but she used opposite action. Client stated she understands that isolating and not talking to her supports will only make her mood worse, but she is struggling to identify what will help. Group offered support and reminded client to challenge any negative thoughts she has and to reach out to friends today. Client appeared to benefit from connecting with peers and coming to IOP rather than staying in bed. Will continue IOP tx to challenge negative thinking patterns and reinforce healthy coping skills. Narrative Note: []
--- NOTE | 2021-03-16 10:05 | BH.SGPN.GN ---
Behaviors/Verbalizations/Mental Status: []Eye contact is good. Motor activity is appropriate. Appearance is casual. Speech is Appropriate. Mood is anxious, depressed. Affect is constricted. Thoughts are linear and logical. No evidence of psychosis. Client Response/Progress/Benefit: [] Pt remained a mostly engaged during group discussion and activity, however remaining primarily passive throughout. Reports struggling with negative thoughts related to a recent stressor which have impeded pt?s ability to fully engage. Attentive during psychoeducation on coping skills. Pt taking notes as peers worked together to identify unhealthy coping skills such as; avoidance, lashing out on others, substances, isolation, catastrophizing, and self-harm. Group was able to identify why people use unhealthy coping skills such as; easy, comfortable, work in the short-term, habit, or it?s what they were taught/learned from others. Pt was able to make connection between the activity (tower building) and the importance of having a strong base/foundation of both internal and external coping skills. Benefited from increased understanding of unhealthy coping skills and the need for developing healthy internal and external coping skills. Pt will continue in IOP to improve management of mood especially in times of perceived failure, increase self-compassion, as well as continue to stabilize and prevent decompensation. Narrative Note: []
--- NOTE | 2021-03-16 11:05 | BH.SGPN.GN ---
Behaviors/Verbalizations/Mental Status: []Client alert and oriented, casually dressed and groomed. Eye contact fair. Motor activity WNL. Speech within normal limits. Affect constricted, mood dysthymic. Thoughts linear, logical, no signs of hallucinations or delusions. Client Response/Progress/Benefit: []Client responded well to session, taking notes and contributing at times during discussion. Group discussed the different categories of coping skills which included distraction, emotional release, grounding, self-love, and thought challenging. Client participated in creating a coping skills ?menu? from the five categories of coping skills. Client's coping skill menu included: cleaning, exercise, meditation, positive affirmations, and putting thoughts into perspective. Appeared to benefit from increasing repertoire of healthy coping skills. Will continue tx to maintain gains, continue use of healthy coping skills and prevent decompensation.
--- NOTE | 2021-03-18 10:10 | BH.SGPN.GN ---
Behaviors/Verbalizations/Mental Status: [] Eye contact is good. Motor activity is appropriate. Appearance is casual. Speech is Appropriate. Mood is euthymic. Affect is flat. Thoughts are linear and logical. No evidence of psychosis. Client Response/Progress/Benefit: [] Pt was an active participant in group discussions and activity. Attentive during psychoeducation. Along with peers provided insight into topics discussed which included; What is social support? Why is social support important? What are the benefits of using our supports? How does a lack of strong social supports impact our mental health and symptom management? Engaged in interactive discussion on the above topics. Participated in activity and was able to connect the activity to the topic of creating and maintaining a balance of social supports. Benefited from increase awareness of the benefits to a balanced social support and ways to create new social supports. Pt will be discharged from [facility] today. Narrative Note: []
--- NOTE | 2021-03-18 11:03 | BH.SGPN.GN ---
Behaviors/Verbalizations/Mental Status: []Client alert and oriented, casually dressed and groomed. Eye contact good. Motor activity appropriate. Speech within normal limits. Affect congruent, mood euthymic. Thoughts linear, logical, no signs of hallucinations or delusions. Client Response/Progress/Benefit: []Client an active participant throughout AEB contributing to discussion and taking notes. Client participated in the group activity highlighting the various barriers to effectively utilizing supports and strategies for improving support. Participated in discussion of the 5 ways our supports can support us (emotional, tangible, affirmational, network/belonging, and instructional) and the group listed examples for all types. Client reports wanting to work on increasing emotional and appraisal supports, noting this will help promote continued awareness of her emotions in healthy ways, provide safe outlets for emotion release, as well as maintain the progress he has made in IOP tx. Client plans to do this by reaching out to supports rather than isolating or minimizing, self-reflect, as well as continue to practice healthy internal coping skills. Client seemed to benefit from identifying the type of support and how this support will aid in promoting overall mental wellness. Will discharge from IOP tx and continue with individual counseling on the outpatient level. Narrative Note: []
--- NOTE | 2021-03-18 14:04 | BH.MDN ---
Multi-Disciplinary Note - Note 30-min Individual Time Started:: 09:25 Date: 03/18/21 Purpose of session/treatment goals addressed:: Reviewed progress on treatment plan in IOP. Finalized aftercare plans and reviewed outcome measurement. Eye Contact:: Good Motor Activity:: Appropriate Appearance:: Casual Speech:: Appropriate Mood:: Euthymic, Anxious Affect:: Congruent Thoughts:: Linear, Logical, No evidence of hallucinations/delusions noted Staff Interventions:: discharge planning, strengths perspective, reviewed DSM-5, other - reviewed maintenance plan Client Response:: Reviewed progress in IOP and on treatment plan goals. Pt was able to identify several skills learned in treatment which she believes have aided in improving overall mental health and symptom management. Discussed internal conflict and challenging negative self-talk, anxiety management skills, healthy coping skills for depression, coping with personal stressors, self-care, and communication with supports. According to DSM outcome measurement pt showed an overall symptom decrease of 59% since admission. Pt had some significant stressors this week and reports that she was able to utilize thought challenge and reframing skills as well as healthy coping skills to better accept and manage these stressors. Reports increased awareness of the need for self-care and personal accountability, discussing strategies for continued promotion of these skills. Risks/Concerns:: no risks or concerns noted. Denies any suicidal ideation, plan, or intent as of this date. Scores for self-harming urges has reduced by 100% since admission. Progress Toward Goals/Plan:: Progress noted. Pt has met treatment plan goals as noted above. DSM outcome measurements show a 59% decrease in overall symptoms since admission. DSM also shows a 43% reduction in scores on depression scale, 67% reduction on score in anger scale, and a 63% reduction on scores on the anxiety scales. Pt self-reports improved mood stability, improved communication with supports, better use of self-care, and a decrease in anxiety. Reports increased awareness and insight on health coping skills. Plan is to discharge as pt no longer meets criteria for IOP level of care. Time Stopped:: 09:50
--- NOTE | 2021-03-18 14:21 | BH.DS_ITS ---
Discharge Summary - Demographics Date of Admission:: 01/27/21 Discharge Date: 03/18/21 Presenting Problems at Admission:: Pt is a 20-year-old female with a history of depression and anxiety who was referred to [facility] tx by her outpatient psychiatric provider due to worsening symptoms of depression and fleeting suicidal ideation. Per pt report, symptoms have been worsening for the past 2 months and especially became more severe in the past 3 weeks. Reports gr aduating from college 2 months ago and is struggling with anxiety about finding a job and determining her future career plans. Reports that lack of direction has led to increased depression, specifically hopelessness and worthlessness. Additionally reports that pressure to find a job had increased in the past few weeks as she and her long-term girlfriend have recently decided to move in together and cannot afford to do so until pt finds a more financially stable job in the [facility] [employer] [facility]. Reports currently living with her parents and sister who are supportive but that her father in not aware of her sexuality which is at times a stressor. At time of admission, pt endorses: low energy, increased fatigue and sleep, decreased motivation and concentration, hopelessness, worthlessness, isolation, and fleeting passive suicidal ideation. Denies any active suicidal ideation, plan, or intent at this time. Indicates some increased anxiety symptoms including racing thoughts, ruminating thoughts causing increased worry, and panic attacks occurring approximately once a week. Reports current symptoms have resulted in pt calling off at her current job, feeling disconnected from others, not completing daily self-care or responsibilities, limited finances, and lack of engagement in activities she used to enjoy. Given impact on social, occupational, and financial functioning pt is to begin IOP tx. Discharge Diagnoses:: Major depressive disorder, recurrent, severe without psychosis, Generalized anxiety disorder Reason for Discharge:: Pt completed treatment plan goals and no longer meets criteria for [facility] level of care. - Treatment Progress During Treatment & Response: Pt's attendance in [facility] was consistent and pt was engaged and attentive in both individual and group settings. Increased input provided in group setting as pt became more comfortable with tx environment. Pt has met treatment plan goals as noted above. DSM outcome measurements show a 59% decrease in overall symptoms since admission. DSM also shows a 43% reduction in scores on depression scale, 67% reduction on score in anger scale, and a 63% reduction on scores on the anxiety scales. Pt self- reports improved mood stability, improved communication with supports, better use of self-care, and a decrease in anxiety. Reports increased awareness and insight on health coping skills. Plan is to discharge as pt no longer meets criteria for IOP level of care. Issues Still to be Addressed:: Would benefit from continued work on self- compassion, confidence and internal coping skills. Recommended to continue with counseling to work on thought challenging, depression, anxiety, and overall mood management. Discharge Recommendations/Instructions:: Pt is linked with Vandana Kaur at [place] [address] for medication management and is planning to begin telehealth individual counseling there as well. Scheduled to begin aftercare group here at [facility] starting on 03/25/21 Discharge Handout: Complete Discharge Handout with client on aftercare options and continuity of care.
--- NOTE | 2021-03-18 14:32 | BH.AFTERPLAN ---
Aftercare Plan - Demographics Treatment End Date:: 03/18/21 Psychiatrist:: Alana Alford Psychiatrist Office #:: [phone] [facility] Therapist:: Noa Gordon Therapist Phone #:: [phone] - Plan Details Progress/Aftercare Plan Details:: You have made progress in beginning to make your own mental health needs more of a priority. Taking time to seek treatment has allowed you the opportunity to reflect deeper on what you truly need and begin taking the steps to seek that out. This has included setting boundaries with yourself (not allowing yourself to give into the desire to isolate/avoid), making time to plan for self-care, and challenging yourself to continue to develop a relationship with yourself. Keep this up! You have been making strides in decreasing the negative self-talk and challenging the distorted thoughts that impact your mood and your mental health. Challenging those distortions and negative self-talk messages will only continue to help improve your ability to love yourself and treat yourself kinder as a person, not to mention reduce the self-comparison! Sending yourself compassionate messages in times of disappointment, increased stress, when you feel overwhelmed or like you can?t do it, and when experiencing higher levels of anxiety will continue to help improve your resilience and ability to cope in difficult times. You have taken steps to challenge your perspective and remind yourself that your expectations for yourself may not always be fair. This is a tough skill and you have been putting forth effort to keep trying even when the thoughts are difficult to combat. You have shown progress in your ability to recognize potential warning signs/triggers that you are feeling overwhelmed, increased pressure, or more isolated/lonely and are more proactively doing things about it to help yourself out and avoid escalating to the point of crisis. You?re using rest time to refuel yourself rather than allowing it turn into avoidance and reinforce the depression cycle. Keep this up! Breaks are okay if used as self-care and not because you are depressed! You have made so much progress in using opposite action to encourage yourself to start small and complete small tasks that you can build upon. You have been able to not only get out of the isolation funk but also begun to do things around the house, but you are now also getting back into the activities you enjoy! Keep making time for the things you enjoy doing and not just the tasks you feel responsible for. Writing, reading, going outside, spending time with friends and family. These are no less important to your mental health! Continue to work on making progress in your ability to communicate openly and honestly with your supports. I know it can be hard to talk about mental health or reach out when it feels like others may not understand. Just remember, they are here to help you and they don?t always have to fully understand in order to give you the support you need! Strategies for Success:: Opposite Action!!! ? do what will help you, even when your brain is saying ?this is too hard? or ?I can?t do it?, even when it feels uncomfortable, even when you are tempted to give up or fall back into unhealthy coping behaviors like napping or isolating. Doing the hard or the anxious thing is often the healthier option. Challenge negative thought patterns by trying to look at things from the other perspective. Remember ?thoughts are thoughts, not facts?. Ask yourself ?How else can I think about this?? ?Do I have to give this thought value?? ?Is there evidence against this thought?? ?Am I being fair to myself?? ?Would I expect this of someone else??. Remember COMMUNICATE, COMMUNICATE, COMMUNICATE! Your supports won?t know how to help if you don?t let them be a part of the conversation. Your mental health needs are important and deserve to be addressed! Keep challenging yourself to find activities that YOU enjoy and make YOU feel refreshed. Who and what refills your cup? Continue to make time for yourself! Self-care is sharma to maintaining progress and developing a healthier relationship with yourself! This includes sometimes doing those hard things (such as reaching out or challenging yourself to say ?no? to things that may create unnecessary stress). Use your in the moment calming skills you have learned. Remember, Stop and take a breather when things feel overwhelming. Continue with your meditation practices! Find a mantra you connect with and regularly remind yourself of that! Keep going to therapy! - Appointments Appointments/Referrals to Other Services:: Pt is linked with Vandana Kaur at [place] [id number] for medication management and is planning to begin telehealth individual counseling there as well. Scheduled to begin aftercare group here at [facility] starting on 03/25/21 - Medications Home Medications: Home Medications sertraline [Zoloft] 150 mg PO DAILY 01/27/21 bupropion HCl [Wellbutrin XL] 150 mg PO DAILY 03/03/21
== END 2021-03-18 13:08 | disposition home or self-care (01) ==
LOC: BHIOP 09:00
PROVIDERS: PCP Family Medicine; Referring Provider Psychiatry & Neurology Psychiatry; Visit Provider Psychiatry & Neurology Psychiatry
DX: F33.2 Major depressive disorder, recurrent severe without psychotic features (principal); F41.1 Generalized anxiety disorder
CPT/HCPCS: S9480; 90832; 90853

== ENCOUNTER 2021-04-08 09:00 | Outpatient (RCR) | payer OTHER, SELFPAY ==
--- NOTE | 2021-04-08 14:00 | BH.SGPN.GN ---
Behaviors/Verbalizations/Mental Status: []Client alert and oriented, casually dressed and groomed. Eye contact good. Motor activity appropriate. Speech within normal limits. Affect constricted, mood dysthymic. Thoughts linear, logical, no signs of hallucinations or delusions. Client Response/Progress/Benefit: []Client responded well to session, sharing and listening attentively to others throughout. Client stated she is doing okay. Reported she has been struggling with finding motivation to do things. Client stated she has been making herself clean. Client stated yesterday she didn't want to do anything so stayed in bed all day. Client reported she has been trying to read and journal. Client participated in group discussion regarding skills and routines that make up mental health maintenance, and completed own maintenance plan. Client completed maintenance plan in session identifying triggers, warning signs, healthy coping skills, and self-care activities. Appeared to benefit from identifying personal triggers and warning signs as well as skills to aid client in maintaining mental health. Client to continue aftercare group to promote gains, and prevent regression.
--- NOTE | 2021-04-09 14:58 | BH.MTP ---
Master Treatment Plan - Patient Information Program Physician:: Dr. Alana Alford Primary Therapist:: Nirmala BOURGEOIS - Psychiatric Diagnoses Psychiatric Diagnoses:: Major depressive disorder, recurrent, severe without psychosis, Generalized anxiety disorder Diagnosis Code(s):: F 33.2 - Estimated LOS Estimated LOS (in weeks):: 12 Problem/Goal #1 - Problem/Goal #1 Stated Goal:: client will maintain or see a reduction in symptoms AEB client score on the DSM 5 cross-cutting measure and improve client's daily functioning. - Objectives Objective #1 Stated Objective: Client will continue to consistently apply healthy coping skills to maintain progress made in IOP tx Interventions: Through group therapy, client will review warning signs and triggers as well as healthy coping skills learned in IOP tx to successfully maintain gains while transitioning into outpatient therapy. Discharge Criteria: Client will have accomplished this goal when client's score on the DSM-5 cross-cutting measure has either maintained or reduced over a 12 week period. Target Date: 07/01/21 Review Date: 05/06/21 Status: open Objective #2 Stated Objective: Client will learn and utilize 2-3 maintenance strategies to prevent decompensation. Interventions: Through group therapy, client will be provided with education on healthy maintenance behaviors, relapse prevention techniques, and healthy coping strategies. Discharge Criteria: Client will have accomplished this goal when can report using at least 2 maintenance skills to prevent decompensation. Target Date: 07/01/21 Review Date: 05/06/21 Status: open
== END 2021-04-11 23:59 ==
LOC: BHOG 09:00
PROVIDERS: PCP Family Medicine; Visit Provider Psychiatry & Neurology Psychiatry
DX: F33.2 Major depressive disorder, recurrent severe without psychotic features (principal); F41.1 Generalized anxiety disorder
CPT/HCPCS: 90853

== ENCOUNTER 2021-04-14 14:21 | Outpatient (RCR) | payer OTHER, SELFPAY ==
--- NOTE | 2021-04-15 14:00 | BH.SGPN.GN ---
Behaviors/Verbalizations/Mental Status: []Client alert and oriented, casually dressed and groomed. Eye contact good. Motor activity appropriate. Speech within normal limits. Affect congruent, mood euthymic and anxious. Thoughts linear, logical, no signs of hallucinations or delusions. Client Response/Progress/Benefit: []Client responded well to session, client reports her mood today is ?anxious? as client has an interview coming up for a position she really wants. Client also reports some sleep issues due to a recent medication change. Despite these stressors, client shared she still feels like she is doing well. Reports using self-talk, therapy, and thought challenging to cope. Client engaged well during the discussion of the components of self-compassion. Client connected with the benefits of self-compassion and participated in the activity of reframing a recent setback using self-compassion. Client used being turned down for a job she really wanted a month ago which caused client to feel not good enough. Client used self-compassion and reported ?it showed a lot of bravery to interview, and it proves that I can try again.? Client appeared to benefit from practicing self-compassion and connecting with peers. Will continue aftercare to promote mood stability and reinforce healthy coping skills. Narrative Note: []
--- NOTE | 2021-05-11 13:31 | BH.DS ---
Discharge Summary - Demographics Date of Admission:: 04/09/21 Discharge Date: 05/11/21 Presenting Problems at Admission:: Pt is a 20-year-old female with a history of depression and anxiety who was referred to [facility] tx by her outpatient psychiatric provider due to worsening symptoms of depression and fleeting suicidal ideation. Per pt report at admission to [facility], symptoms have been worsening for the past 2 months and especially became more severe in the past 3 weeks. Reports graduating from college 2 months ago and is struggling with anxiety about finding a job and determining her future career plans. Reports that lack of direction has led to increased depression, specifically hopelessness and worthlessness. Additionally reports that pressure to find a job had increased in the past few weeks as she and her long-term girlfriend have recently decided to move in together and cannot afford to do so until pt finds a more financially stable job in the [employer]. Reports currently living with her parents and sister who are supportive but that her father in not aware of her sexuality which is at times a stressor. At time of admission, pt endorses: low energy, increased fatigue and sleep, decreased motivation and concentration, hopelessness, worthlessness, isolation, and fleeting passive suicidal ideation. Denies any active suicidal ideation, plan, or intent at this time. Indicates some increased anxiety symptoms including racing thoughts, ruminating thoughts causing increased worry, and panic attacks occurring approximately once a week. Reports current symptoms have resulted in pt calling off at her current job, feeling disconnected from others, not completing daily self-care or responsibilities, limited finances, and lack of engagement in activities she used to enjoy. At discharge from [facility] DSM showed a 43% reduction in scores on depression scale, 67% reduction on score in anger scale, and a 63% reduction on scores on the anxiety scales. Pt continued to struggle with self-compassion, confidence and internal coping skills. Discharge Diagnoses:: F33.2 Major depressive disorder, recurrent, severe without psychosis, Generalized anxiety disorder Reason for Discharge:: Pt missed several aftercare sessions due to work schedule and has not returned phone calls made by staff. Due to inconsistent attendance and not returning phone calls pt to be discharged from aftercare program. - Treatment Progress During Treatment & Response: Limited progress in aftercare given pt only attended 2 aftercare sessions. When pt did attend sessions she was engaged in sessions AEB contributing thoughts and emotions. Issues Still to be Addressed:: Pt could benefit from continued counseling to work on self-compassion, increasing internal coping skills, and builidng confidence. Discharge Recommendations/Instructions:: Client will continue seeing his outpatient therapist for individual counseling. Client also sees psychiatrist for medication management. Discharge Handout: Complete Discharge Handout with client on aftercare options and continuity of care.
== END 2021-05-11 23:59 ==
LOC: BHOG 14:21
PROVIDERS: PCP Family Medicine; Visit Provider Psychiatry & Neurology Psychiatry
DX: F33.2 Major depressive disorder, recurrent severe without psychotic features (principal); F41.1 Generalized anxiety disorder; Z79.899 Other long term (current) drug therapy
CPT/HCPCS: 90853